=== PATIENT | male | born 1985 | race Caucasian/White ===

== ENCOUNTER → 2020-04-24 16:49 | Outpatient (CLI) | payer OTHER, SELFPAY ==
--- NOTE | 2020-04-24 | DI.MRI.S_ITS ---
PROCEDURE: MR LUMBAR SPINE WO CON INDICATIONS: Low back pain TECHNIQUE: Noncontrast sagittal T1 spin echo and T2 fast echo, sagittal STIR, axial T1 and T2 fast spin echo through the lumbar spine. In cases with scoliosis, additional coronal T2 fast spin echo may be performed. COMPARISON: [facility] Vernon Zavalla, CR, XR LUMBAR SPINE 2 OR 3 VIEWS, 04/16/2020, 9:08. FINDINGS: Image quality: Excellent. Alignment and Curvature: There is normal bony alignment. Bone Marrow: Minimal reactive endplate changes noted adjacent to the L5-S1 disc. No acute vertebral body compression fractures. Spinal Cord: Conus medullaris terminates at the L1-2 disc level. Visualized cord demonstrates normal signal and size. Paraspinous Soft Tissues: No paravertebral masses. L1-L2: Normal appearance. L2-L3: Normal appearance. L3-L4: Normal appearance. L4-L5: Normal appearance. L5-S1: Loss of disc signal. Mild, diffuse disc bulge. Small central disc protrusion. No central stenosis. Mild bilateral neural foraminal narrowing. No neural compression. Fissure noted in the posterior annulus. IMPRESSION: 1. Mild L5-S1 degenerative disc disease. 2. No central stenosis. 3. Mild bilateral L5-S1 neural foraminal narrowing. 4. No neural compression. 5. L5-S1 disc annulus fissure. Dictated by: Patt Perkins MD, PhD on 04/25/2020 at 13:16 Approved by: Patt Perkins MD, PhD on 04/25/2020 at 13:24
== END ==
PROVIDERS: Family Provider Family Medicine; PCP Family Medicine; Referring Provider Orthopaedic Surgery; Visit Provider Orthopaedic Surgery
DX: M54.5 Low back pain (principal); M51.37 Other intervertebral disc degeneration, lumbosacral region; M48.07 Spinal stenosis, lumbosacral region
CPT/HCPCS: 72148

== ENCOUNTER 2020-06-24 08:15 | Outpatient (RCR) | payer OTHER, SELFPAY ==
--- NOTE | 2020-03-24 12:06 | PT.OIE ---
Current Diagnoses Low back pain (03/24/20) Visit Care Team Role Provider Type Rodolfo Khan DO Attending Provider Non-Staff Family Provider Primary Care Provider Referring Provider Specialty: Family Practice Address: [address] [place] [address], [facility] Email: Physical Therapy Initial Evaluation PT-OP-A Visit Information Start: 03/24/20 09:58 Freq: Status: Active Protocol: Document 03/24/20 09:59 HH (Rec: 03/24/20 10:34 [email or web address]) Out-Patient Physical Therapy Visit Information Visit Information Visit Type Initial Evaluation Visit Start Time 08:16 Visit Stop Time 09:00 Total Visit Minutes 44 Visit Number 05/21 Number of GUIDE TRAVEL Visits 0 Evaluation Information Evaluation Date 03/24/20 PT-OP-B Current Condition Start: 03/24/20 09:58 Freq: Status: Active Protocol: Document 03/24/20 09:59 HH (Rec: 03/24/20 10:34 [email or web address]) Current Condition History of Current Condition Onset Date 5-6 years ago Current Complaints chronic LBP History of Current Condition Pt is a 34yo male here for his chronic LBP started 5-6 years ago. 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 He then has intermittent low grade back pain (1-4/10) and had flare ups x 2 (pain up to 8/10 ). His most recent one was in December while he was picking up a small object but his pain subsided after 4 weeks. Pt had physical therapy before which focused on increasing his hamstrings flexiblity and trunk stability. Pt has been going to the gym for lifting workout ( bench press, squat and deadlift) which seemly has been helping his back as he stated, but he wants to participate PT again for injury prevention and therex for recovery. PT-OP-C Subjective Start: 03/24/20 09:58 Freq: Status: Active Protocol: Document 03/24/20 09:59 HH (Rec: 03/24/20 10:34 [email or web address]) Patient Questionnaires Oswestry Low Back Index Oswestry Score 28 Oswestry Impairment 20 to 39% Impaired (Score 20- 39) OP-PT Pain Assessment Location LBP Pain Location Details L4-L5 Scale Used 1-8 Description Aching,Pulling Frequency Intermittent Radiating Location none but R posterior thigh during flare ups Pain Aggravating Factors Activity,Exercise,Bending, Lifting Pain Alleviating Factors Inactivity PT-OP-F Manual Assessment Start: 03/24/20 09:58 Freq: Status: Active Protocol: Document 03/24/20 09:59 HH (Rec: 03/24/20 10:34 [email or web address]) Manual Assessments Soft Tissue Assessment Soft Tissue Mobility Assessment increased tenderness to pressure at lumbar paraspinals Joint Mobility Assessment Joint Mobility Assessment pain with PA mob at L4-L5 PT-OP-H Neuro Start: 03/24/20 09:58 Freq: Status: Active Protocol: Document 03/24/20 09:59 HH (Rec: 03/24/20 10:34 [email or web address]) Sensation Evaluation Gross Sensation Gross Sensation WNL Deep Tendon Reflex & Clonus Assessment Deep Tendon Reflex Bilateral Achilles Deep Tendon Reflex 2+ Normal Bilateral Patellar Deep Tendon Reflex 1+ Diminished PT-OP-J Posture/Palpation/Skin Start: 03/24/20 09:58 Freq: Status: Active Protocol: Document 03/24/20 09:59 HH (Rec: 03/24/20 10:34 [email or web address]) Posture Evaluation Position Standing Evaluation View Lateral T-Spine Posture Increased Kyphosis L-Spine Posture Increased Lordosis Ankle/Foot Posture (L) Pronated,(R) Pronated,(L) Forefoot Abducted,(R) Forefoot Abducted PT-OP-K Range of Motion Start: 03/24/20 09:58 Freq: Status: Active Protocol: Document 03/24/20 09:59 (Rec: 03/24/20 10:34 [email or web address]) Lumbar Spine Range of Motion Lumbar Spine Active Degrees Comments standing toe touch test= 8 inches from floor, significant PPT with flexion mostly from lumbar spine lateral flexion= 23 inches from floor bilaterally standing extenison= shoulders cleared heels bilaterally Hip Goniometric Range of Motion Hip Right Active Hip ROM WFL No Testing Position Supine Straight Leg Raise 60 Internal Rotation 35 External Rotation 30 Left Active Hip ROM WFL No Straight Leg Raise 65 Internal Rotation 30 External Rotation 35 Hip ROM Limitations Hip ROM Limitations Soft Tissue Tightness Knee Goniometric Range of Motion Knee Right Flexion Active (degrees) 128 Flexion Passive (degrees) 130 Comments significant anterior pelvic tilt noted with passive knee flexion. Pain noted at lumbar spine as well Left Knee ROM WFL No Patient Position Prone Flexion Active (degrees) 116 Flexion Passive (degrees) 120 Comments anterior pelvic tilt noted with passive knee flexion. less Pain noted at lumbar spine as well PT-OP-L Special Tests Start: 03/24/20 09:58 Freq: Status: Active Protocol: Document 03/24/20 09:59 (Rec: 03/24/20 10:34 [email or web address]) Special Tests Lumbar Spine Special Tests Harlan Test Results +ve B Comments pain at low back, knee ~10 degrees off table Prone Instability Test Test Results +ve B Comments pain at L4-L5 with PA mob and subside with unilateral hip extension Straight Leg Raise Test Results -ve B Comments SLR up to 60 degrees, significant Hs tightness PT-OP-M Strength Start: 03/24/20 09:58 Freq: Status: Active Protocol: Document 03/24/20 09:59 (Rec: 03/24/20 10:34 [email or web address]) Hip Strength Hip Manual Muscle Testing Right Flexion (L2) 4 Good Extension (S1) 4 Good Abduction 4+ Good+ Adduction 4+ Good+ Left Flexion (L2) 4+ Good+ Extension (S1) 4+ Good+ Abduction 4+ Good+ Adduction 4+ Good+ PT-OP-Q Treatments Start: 03/24/20 09:58 Freq: Status: Active Protocol: Document 03/24/20 09:59 (Rec: 03/24/20 10:34 [email or web address]) Therapeutic Exercises Standing Exercises quad stretch Standing Exercise Name ankle on table Side bilateral Comments for HEP gallo curl Standing Exercise Name cues on extended knees Equipment Used with 10 lbs DB Comments for HEP pigeon stretch Standing Exercise Name with trunk rotation to ipsilateral LE Comments for HEP PT-OP-T Assessment and Plan Start: 03/24/20 09:58 Freq: Status: Active Protocol: Document 03/24/20 09:59 (Rec: 03/24/20 10:34 [email or web address]) Physical Therapy Assessment Rehab Potential Rehabilitation Potential Excellent Evaluation Complexity Number of Personal Factors/Comorbidities 0 Number of Body Systems Impaired 1-2 Clinical Presentation at Evaluation Stable Impairments Impairments Activity Tolerance,Balance, Functional Activities, Functional Mobility,Pain, Posture,ROM,Soft Tissue Mobility,Strength,Tone Goals pain Impairment significant pain during PA mob at L4-L5 Vermin Exterminator Goal (LTG) pt will improve his lumbar stability and msucular strength so he will have pain no more than >2 during PA mob. LTG Duration 8 weeks toe touch test Impairment flexion= 8 inches. 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 LTG Duration 8 weeks Oswestry Impairment Pt scores 28 on Oswestry LBP questionnaire Short Term Goal (STG) pt will score <20 on Oswestry LBP questionnaire STG Duration 4 weeks Vermin Exterminator Goal (LTG) pt will score <15 on Oswestry LBP questionnaire to improve his quality of life LTG Duration 8 weeks Assessment Summary Assessment Pt is a 34yo male here for his chronic LBP after his injury from lifting a 400 lbs safe 5- 6 years ago. Upon assessment, pt presents poor hip mobility who is very limited at hamstrings, hip ER IR and hip flexors. This creates significant muscular tension towards his lumbar spine who tends to injury himself with bend over / twisting activities. Pt also has poor lumbar spine stability whose pain decreases with unilateral hip extension during prone instability test. However, pt stated that he has a flare up after assessment and this PT provided pigeon stretch, gallo curl and quad stretch. Roque will benefit from skilled therapy to address his limited hip mobility and trunk stability in order for him to fully return to his workout routine and bend over activities without fear avoidance. Physical Therapy Plan Frequency and Duration Frequency of Treatment 1x/Week Duration of Treatment 10 weeks Plan of Care Start Date 03/24/20 Plan of Care End Date 06/07/20 Therapeutic Interventions Therapeutic Interventions Aquatic Therapy,Balance Training,Gait Training,Home Exercise Program,Joint Mobilizations,Manual Therapy, Neuromuscular Re-education, Patient/Caregiver Education, Self-Care/Home Management,Soft Tissue Mobilization,Taping, Therapeutic Activities, Therapeutic Exercises Modalities Biofeedback,Cold Pack/Ice Massage,Electric Stimulation, Hot Packs,Infrared Therapy, Traction- Mechanical, Ultrasound Next Visit Focus/Plan Next Note Type Treatment Note Next Visit Plan check HEP cont HS, hip ER IR, hip flexor mobility ex cat camel trunk stability, bird dog lift
--- NOTE | 2020-04-01 16:17 | PT.OTN ---
Current Diagnoses Low back pain (04/01/20) Physical Therapy Treatment Note PT-OP-A Visit Information Start: 03/24/20 09:58 Freq: Status: Active Protocol: Document 04/01/20 14:30 HH (Rec: 04/01/20 16:17 [email or web address]) Out-Patient Physical Therapy Visit Information Visit Information Visit Type Treatment Note Visit Start Time 14:30 Visit Stop Time 15:15 Total Visit Minutes 45 Visit Number 2/13 Number of CATEGORY CONSULTANT Visits 0 PT-OP-B Current Condition Start: 03/24/20 09:58 Freq: Status: Active Protocol: Document 03/24/20 09:59 HH (Rec: 03/24/20 10:34 [email or web address]) Current Condition History of Current Condition Onset Date 5-6 years ago Current Complaints chronic LBP History of Current Condition Pt is a 34yo male here for his chronic LBP started 5-6 years ago. 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 He then has intermittent low grade back pain (1-4/10) and had flare ups x 2 (pain up to 8/10 ). His most recent one was in December while he was picking up a small object but his pain subsided after 4 weeks. Pt had physical therapy before which focused on increasing his hamstrings flexiblity and trunk stability. Pt has been going to the gym for lifting workout ( bench press, squat and deadlift) which seemly has been helping his back as he stated, but he wants to participate PT again for injury prevention and therex for recovery. PT-OP-C Subjective Start: 03/24/20 09:58 Freq: Status: Active Protocol: Document 04/01/20 14:30 HH (Rec: 04/01/20 16:17 [id number]) OP-PT Subjective Patient Comments Patient Comments I got sore for 2 days from evaluation. Im getting back to normal now. PT-OP-F Manual Assessment Start: 03/24/20 09:58 Freq: Status: Active Protocol: Document 03/24/20 09:59 HH (Rec: 03/24/20 10:34 [email or web address]) Manual Assessments Soft Tissue Assessment Soft Tissue Mobility Assessment increased tenderness to pressure at lumbar paraspinals Joint Mobility Assessment Joint Mobility Assessment pain with PA mob at L4-L5 PT-OP-H Neuro Start: 03/24/20 09:58 Freq: Status: Active Protocol: Document 03/24/20 09:59 HH (Rec: 03/24/20 10:34 [email or web address]) Sensation Evaluation Gross Sensation Gross Sensation WNL Deep Tendon Reflex & Clonus Assessment Deep Tendon Reflex Bilateral Achilles Deep Tendon Reflex 2+ Normal Bilateral Patellar Deep Tendon Reflex 1+ Diminished PT-OP-J Posture/Palpation/Skin Start: 03/24/20 09:58 Freq: Status: Active Protocol: Document 03/24/20 09:59 HH (Rec: 03/24/20 10:34 [email or web address]) Posture Evaluation Position Standing Evaluation View Lateral T-Spine Posture Increased Kyphosis L-Spine Posture Increased Lordosis Ankle/Foot Posture (L) Pronated,(R) Pronated,(L) Forefoot Abducted,(R) Forefoot Abducted PT-OP-K Range of Motion Start: 03/24/20 09:58 Freq: Status: Active Protocol: Document 03/24/20 09:59 HH (Rec: 03/24/20 10:34 [email or web address]) Lumbar Spine Range of Motion Lumbar Spine Active Degrees Comments standing toe touch test= 8 inches from floor, significant PPT with flexion mostly from lumbar spine lateral flexion= 23 inches from floor bilaterally standing extenison= shoulders cleared heels bilaterally Hip Goniometric Range of Motion Hip Right Active Hip ROM WFL No Testing Position Supine Straight Leg Raise 60 Internal Rotation 35 External Rotation 30 Left Active Hip ROM WFL No Straight Leg Raise 65 Internal Rotation 30 External Rotation 35 Hip ROM Limitations Hip ROM Limitations Soft Tissue Tightness Knee Goniometric Range of Motion Knee Right Flexion Active (degrees) 128 Flexion Passive (degrees) 130 Comments significant anterior pelvic tilt noted with passive knee flexion. Pain noted at lumbar spine as well Left Knee ROM WFL No Patient Position Prone Flexion Active (degrees) 116 Flexion Passive (degrees) 120 Comments anterior pelvic tilt noted with passive knee flexion. less Pain noted at lumbar spine as well PT-OP-L Special Tests Start: 03/24/20 09:58 Freq: Status: Active Protocol: Document 03/24/20 09:59 HH (Rec: 03/24/20 10:34 [email or web address]) Special Tests Lumbar Spine Special Tests Harlan Test Results +ve B Comments pain at low back, knee ~10 degrees off table Prone Instability Test Test Results +ve B Comments pain at L4-L5 with PA mob and subside with unilateral hip extension Straight Leg Raise Test Results -ve B Comments SLR up to 60 degrees, significant Hs tightness PT-OP-M Strength Start: 03/24/20 09:58 Freq: Status: Active Protocol: Document 03/24/20 09:59 HH (Rec: 03/24/20 10:34 HH [email or web address]) Hip Strength Hip Manual Muscle Testing Right Flexion (L2) 4 Good Extension (S1) 4 Good Abduction 4+ Good+ Adduction 4+ Good+ Left Flexion (L2) 4+ Good+ Extension (S1) 4+ Good+ Abduction 4+ Good+ Adduction 4+ Good+ PT-OP-Q Treatments Start: 03/24/20 09:58 Freq: Status: Active Protocol: Document 04/01/20 14:30 HH (Rec: 04/01/20 16:17 HH [id number]) Therapeutic Exercises Supine Exercises harlan stretch Side bilateral Reps/Minutes 10 sec hold x5 Prone Exercises quad stretch Side bilateral Reps/Minutes 10 sec hold x 5 Comments R tighter than L, back discomfort at end range Sitting Exercises hamstrings stretch Sitting Exercise Name Single leg hamstrings stretch Side bilateral Reps/Minutes 8 x2 Standing Exercises quad stretch Standing Exercise Name ankle on table, cues for neutral spine Side bilateral Reps/Minutes 10 sec hold x4 Comments for HEP gallo curl Standing Exercise Name cues on extended knees Equipment Used with 10 lbs DB Comments for HEP pigeon stretch Standing Exercise Name with trunk rotation to ipsilateral LE Reps/Minutes 10 sec hold x5 Comments for HEP Manual Therapy Treatment Soft Tissue Mobilization glutes Body Location with piriformis Mobilization Type Sustained Pressure,Trigger Point Release Intensity/Depth Moderate Body Position Prone hamstrings Mobilization Type Sustained Pressure,Trigger Point Release Intensity/Depth Moderate Body Position Prone paraspinals Body Location lumbar Mobilization Type Sustained Pressure,Trigger Point Release Intensity/Depth Moderate Body Position Prone PT-OP-T Assessment and Plan Start: 03/24/20 09:58 Freq: Status: Active Protocol: Document 04/01/20 14:30 HH (Rec: 04/01/20 16:17 HH [id number]) Physical Therapy Assessment Goals pain Impairment significant pain during PA mob at L4-L5 Service Desk Analyst Goal (LTG) pt will improve his lumbar stability and msucular strength so he will have pain no more than >2 during PA mob. LTG Duration 8 weeks toe touch test Impairment flexion= 8 inches. 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 LTG Duration 8 weeks Oswestry Impairment Pt scores 28 on Oswestry LBP questionnaire Short Term Goal (STG) pt will score <20 on Oswestry LBP questionnaire STG Duration 4 weeks Service Desk Analyst Goal (LTG) pt will score <15 on Oswestry LBP questionnaire to improve his quality of life LTG Duration 8 weeks Assessment Summary Assessment Pt recovered from initial evaluation. spent time educated him regarding importance of hip mobility. Added pigeon stretch, lumbar flexion stretch, hamstrings stretch and quad stretch. Physical Therapy Plan Frequency and Duration Frequency of Treatment 1x/Week Duration of Treatment 10 weeks Plan of Care Start Date 03/24/20 Plan of Care End Date 06/07/20 Next Visit Focus/Plan Next Note Type Treatment Note Next Visit Plan check HEP cont HS, hip ER IR, hip flexor mobility ex cat camel trunk stability, bird dog lift
--- NOTE | 2020-04-14 09:23 | PT.OTN ---
Current Diagnoses Low back pain (04/14/20) Physical Therapy Treatment Note PT-OP-A Visit Information Start: 03/24/20 09:58 Freq: Status: Active Protocol: Document 04/14/20 08:15 (Rec: 04/14/20 09:23 [id number]) Out-Patient Physical Therapy Visit Information Visit Information Visit Type Treatment Note Visit Start Time 08:16 Visit Stop Time 09:00 Total Visit Minutes 44 Visit Number 3/13 Number of DELIVERY CREW MEMBER Visits 0 PT-OP-B Current Condition Start: 03/24/20 09:58 Freq: Status: Active Protocol: Document 03/24/20 09:59 HH (Rec: 03/24/20 10:34 [email or web address]) Current Condition History of Current Condition Onset Date 5-6 years ago Current Complaints chronic LBP History of Current Condition Pt is a 34yo male here for his chronic LBP started 5-6 years ago. 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 He then has intermittent low grade back pain (1-4/10) and had flare ups x 2 (pain up to 8/10 ). His most recent one was in December while he was picking up a small object but his pain subsided after 4 weeks. Pt had physical therapy before which focused on increasing his hamstrings flexiblity and trunk stability. Pt has been going to the gym for lifting workout ( bench press, squat and deadlift) which seemly has been helping his back as he stated, but he wants to participate PT again for injury prevention and therex for recovery. PT-OP-C Subjective Start: 03/24/20 09:58 Freq: Status: Active Protocol: Document 04/14/20 08:15 HH (Rec: 04/14/20 09:23 [id number]) OP-PT Subjective Patient Comments Patient Comments I wasnt consistent with my exercises but [place] been doing them every other day. My back is getting better and It's down to 1-2/10. Patient Reported Progress Improving PT-OP-F Manual Assessment Start: 03/24/20 09:58 Freq: Status: Active Protocol: Document 03/24/20 09:59 HH (Rec: 03/24/20 10:34 [email or web address]) Manual Assessments Soft Tissue Assessment Soft Tissue Mobility Assessment increased tenderness to pressure at lumbar paraspinals Joint Mobility Assessment Joint Mobility Assessment pain with PA mob at L4-L5 PT-OP-H Neuro Start: 03/24/20 09:58 Freq: Status: Active Protocol: Document 03/24/20 09:59 HH (Rec: 03/24/20 10:34 [email or web address]) Sensation Evaluation Gross Sensation Gross Sensation WNL Deep Tendon Reflex & Clonus Assessment Deep Tendon Reflex Bilateral Achilles Deep Tendon Reflex 2+ Normal Bilateral Patellar Deep Tendon Reflex 1+ Diminished PT-OP-J Posture/Palpation/Skin Start: 03/24/20 09:58 Freq: Status: Active Protocol: Document 03/24/20 09:59 HH (Rec: 03/24/20 10:34 [email or web address]) Posture Evaluation Position Standing Evaluation View Lateral T-Spine Posture Increased Kyphosis L-Spine Posture Increased Lordosis Ankle/Foot Posture (L) Pronated,(R) Pronated,(L) Forefoot Abducted,(R) Forefoot Abducted PT-OP-K Range of Motion Start: 03/24/20 09:58 Freq: Status: Active Protocol: Document 03/24/20 09:59 (Rec: 03/24/20 10:34 [email or web address]) Lumbar Spine Range of Motion Lumbar Spine Active Degrees Comments standing toe touch test= 8 inches from floor, significant PPT with flexion mostly from lumbar spine lateral flexion= 23 inches from floor bilaterally standing extenison= shoulders cleared heels bilaterally Hip Goniometric Range of Motion Hip Right Active Hip ROM WFL No Testing Position Supine Straight Leg Raise 60 Internal Rotation 35 External Rotation 30 Left Active Hip ROM WFL No Straight Leg Raise 65 Internal Rotation 30 External Rotation 35 Hip ROM Limitations Hip ROM Limitations Soft Tissue Tightness Knee Goniometric Range of Motion Knee Right Flexion Active (degrees) 128 Flexion Passive (degrees) 130 Comments significant anterior pelvic tilt noted with passive knee flexion. Pain noted at lumbar spine as well Left Knee ROM WFL No Patient Position Prone Flexion Active (degrees) 116 Flexion Passive (degrees) 120 Comments anterior pelvic tilt noted with passive knee flexion. less Pain noted at lumbar spine as well PT-OP-L Special Tests Start: 03/24/20 09:58 Freq: Status: Active Protocol: Document 03/24/20 09:59 (Rec: 03/24/20 10:34 [email or web address]) Special Tests Lumbar Spine Special Tests Harlan Test Results +ve B Comments pain at low back, knee ~10 degrees off table Prone Instability Test Test Results +ve B Comments pain at L4-L5 with PA mob and subside with unilateral hip extension Straight Leg Raise Test Results -ve B Comments SLR up to 60 degrees, significant Hs tightness PT-OP-M Strength Start: 03/24/20 09:58 Freq: Status: Active Protocol: Document 03/24/20 09:59 (Rec: 03/24/20 10:34 [email or web address]) Hip Strength Hip Manual Muscle Testing Right Flexion (L2) 4 Good Extension (S1) 4 Good Abduction 4+ Good+ Adduction 4+ Good+ Left Flexion (L2) 4+ Good+ Extension (S1) 4+ Good+ Abduction 4+ Good+ Adduction 4+ Good+ PT-OP-Q Treatments Start: 03/24/20 09:58 Freq: Status: Active Protocol: Document 04/14/20 08:15 (Rec: 04/14/20 09:23 [id number]) Therapeutic Exercises Supine Exercises harlan stretch Side bilateral Reps/Minutes 10 sec hold x5 Comments improved flexibility today. thighs reached table Prone Exercises cat camel Reps/Minutes 10 x2 Comments with cervical extension and flexion quad stretch Side bilateral Reps/Minutes 10 sec hold x 5 Comments no back discomfort, heel1-2 inches off buttocks Sitting Exercises hamstrings stretch Sitting Exercise Name Single leg hamstrings stretch Side bilateral Reps/Minutes 8 x2 Standing Exercises deadlift Side bilateral Equipment Used 10lbs Reps/Minutes 10 x2 Comments cues on hip hinge, pt feels soreness at back gallo curl Standing Exercise Name cues on extended knees Equipment Used with 10 lbs DB pigeon stretch Standing Exercise Name with trunk rotation to ipsilateral LE Reps/Minutes 10 sec hold x5 Comments for HEP Manual Therapy Treatment Soft Tissue Mobilization glutes Body Location with piriformis Mobilization Type Sustained Pressure,Trigger Point Release Intensity/Depth Moderate Body Position Prone hamstrings Mobilization Type Sustained Pressure,Trigger Point Release Intensity/Depth Moderate Body Position Prone paraspinals Body Location lumbar Mobilization Type Sustained Pressure,Trigger Point Release Intensity/Depth Moderate Body Position Prone PT-OP-T Assessment and Plan Start: 03/24/20 09:58 Freq: Status: Active Protocol: Document 04/14/20 08:15 SANTI (Rec: 04/14/20 09:23 [id number]) Physical Therapy Assessment Goals pain Impairment significant pain during PA mob at L4-L5 Snf Goal (LTG) pt will improve his lumbar stability and msucular strength so he will have pain no more than >2 during PA mob. LTG Duration 8 weeks toe touch test Impairment flexion= 8 inches. 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 LTG Duration 8 weeks Oswestry Impairment Pt scores 28 on Oswestry LBP questionnaire Short Term Goal (STG) pt will score <20 on Oswestry LBP questionnaire STG Duration 4 weeks Snf Goal (LTG) pt will score <15 on Oswestry LBP questionnaire to improve his quality of life LTG Duration 8 weeks Assessment Summary Assessment Pt shows good progress with improved hip mobility today, especially quad and hip flexors tightness. Added deadlift today. Physical Therapy Plan Frequency and Duration Frequency of Treatment 1x/Week Duration of Treatment 10 weeks Plan of Care Start Date 03/24/20 Plan of Care End Date 06/07/20 Next Visit Focus/Plan Next Note Type Treatment Note Next Visit Plan check HEP cont HS, hip ER IR, hip flexor mobility ex cat camel trunk stability, bird dog lift
--- NOTE | 2020-04-21 12:21 | PT.OTN ---
Current Diagnoses Low back pain (04/21/20) Physical Therapy Treatment Note PT-OP-A Visit Information Start: 03/24/20 09:58 Freq: Status: Active Protocol: Document 04/21/20 08:16 (Rec: 04/21/20 09:04 [id number]) Out-Patient Physical Therapy Visit Information Visit Information Visit Type Treatment Note Visit Start Time 08:17 Visit Stop Time 09:00 Total Visit Minutes 43 Visit Number 4/13 Number of DEFENSIVE LINE COACH Visits 0 PT-OP-B Current Condition Start: 03/24/20 09:58 Freq: Status: Active Protocol: Document 03/24/20 09:59 HH (Rec: 03/24/20 10:34 [email or web address]) Current Condition History of Current Condition Onset Date 5-6 years ago Current Complaints chronic LBP History of Current Condition Pt is a 34yo male here for his chronic LBP started 5-6 years ago. 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 He then has intermittent low grade back pain (1-4/10) and had flare ups x 2 (pain up to 8/10 ). His most recent one was in December while he was picking up a small object but his pain subsided after 4 weeks. Pt had physical therapy before which focused on increasing his hamstrings flexiblity and trunk stability. Pt has been going to the gym for lifting workout ( bench press, squat and deadlift) which seemly has been helping his back as he stated, but he wants to participate PT again for injury prevention and therex for recovery. PT-OP-C Subjective Start: 03/24/20 09:58 Freq: Status: Active Protocol: Document 04/21/20 08:16 (Rec: 04/21/20 09:04 [id number]) OP-PT Subjective Patient Comments Patient Comments Emelyn been doing all my stretches everyday and my back usually feels the tension while doing it but its better after. I do feel sore the next day Patient Reported Progress Improving PT-OP-F Manual Assessment Start: 03/24/20 09:58 Freq: Status: Active Protocol: Document 03/24/20 09:59 HH (Rec: 03/24/20 10:34 [email or web address]) Manual Assessments Soft Tissue Assessment Soft Tissue Mobility Assessment increased tenderness to pressure at lumbar paraspinals Joint Mobility Assessment Joint Mobility Assessment pain with PA mob at L4-L5 PT-OP-H Neuro Start: 03/24/20 09:58 Freq: Status: Active Protocol: Document 03/24/20 09:59 HH (Rec: 03/24/20 10:34 [email or web address]) Sensation Evaluation Gross Sensation Gross Sensation WNL Deep Tendon Reflex & Clonus Assessment Deep Tendon Reflex Bilateral Achilles Deep Tendon Reflex 2+ Normal Bilateral Patellar Deep Tendon Reflex 1+ Diminished PT-OP-J Posture/Palpation/Skin Start: 03/24/20 09:58 Freq: Status: Active Protocol: Document 03/24/20 09:59 HH (Rec: 03/24/20 10:34 [email or web address]) Posture Evaluation Position Standing Evaluation View Lateral T-Spine Posture Increased Kyphosis L-Spine Posture Increased Lordosis Ankle/Foot Posture (L) Pronated,(R) Pronated,(L) Forefoot Abducted,(R) Forefoot Abducted PT-OP-K Range of Motion Start: 03/24/20 09:58 Freq: Status: Active Protocol: Document 03/24/20 09:59 (Rec: 03/24/20 10:34 [email or web address]) Lumbar Spine Range of Motion Lumbar Spine Active Degrees Comments standing toe touch test= 8 inches from floor, significant PPT with flexion mostly from lumbar spine lateral flexion= 23 inches from floor bilaterally standing extenison= shoulders cleared heels bilaterally Hip Goniometric Range of Motion Hip Right Active Hip ROM WFL No Testing Position Supine Straight Leg Raise 60 Internal Rotation 35 External Rotation 30 Left Active Hip ROM WFL No Straight Leg Raise 65 Internal Rotation 30 External Rotation 35 Hip ROM Limitations Hip ROM Limitations Soft Tissue Tightness Knee Goniometric Range of Motion Knee Right Flexion Active (degrees) 128 Flexion Passive (degrees) 130 Comments significant anterior pelvic tilt noted with passive knee flexion. Pain noted at lumbar spine as well Left Knee ROM WFL No Patient Position Prone Flexion Active (degrees) 116 Flexion Passive (degrees) 120 Comments anterior pelvic tilt noted with passive knee flexion. less Pain noted at lumbar spine as well PT-OP-L Special Tests Start: 03/24/20 09:58 Freq: Status: Active Protocol: Document 03/24/20 09:59 (Rec: 03/24/20 10:34 [email or web address]) Special Tests Lumbar Spine Special Tests Harlan Test Results +ve B Comments pain at low back, knee ~10 degrees off table Prone Instability Test Test Results +ve B Comments pain at L4-L5 with PA mob and subside with unilateral hip extension Straight Leg Raise Test Results -ve B Comments SLR up to 60 degrees, significant Hs tightness PT-OP-M Strength Start: 03/24/20 09:58 Freq: Status: Active Protocol: Document 03/24/20 09:59 (Rec: 03/24/20 10:34 [email or web address]) Hip Strength Hip Manual Muscle Testing Right Flexion (L2) 4 Good Extension (S1) 4 Good Abduction 4+ Good+ Adduction 4+ Good+ Left Flexion (L2) 4+ Good+ Extension (S1) 4+ Good+ Abduction 4+ Good+ Adduction 4+ Good+ PT-OP-Q Treatments Start: 03/24/20 09:58 Freq: Status: Active Protocol: Document 04/21/20 08:16 HH (Rec: 04/21/20 09:04 [id number]) Therapeutic Exercises Supine Exercises bridging Side bilateral Reps/Minutes 10 x2 harlan stretch Side bilateral Reps/Minutes 10 sec hold x5 Comments improved flexibility today. thighs reached table Prone Exercises bird dog Side bilateral Reps/Minutes 8 x2 cat camel Reps/Minutes 10 x2 Comments with cervical extension and flexion quad stretch Side bilateral Reps/Minutes 10 sec hold x 5 Comments no back discomfort, heel1-2 inches off buttocks Sitting Exercises hamstrings stretch Sitting Exercise Name Single leg hamstrings stretch Side bilateral Reps/Minutes 8 x2 Standing Exercises RDL Standing Exercise Name staggered stance Side bilateral Reps/Minutes 8x 2 Comments slight discomfort with L foot forward, deadlift Side bilateral Equipment Used 10lbs Reps/Minutes 10 x2 Comments cues on hip hinge, pt feels soreness at back gallo curl Standing Exercise Name cues on extended knees Equipment Used with 10 lbs DB Manual Therapy Treatment Soft Tissue Mobilization glutes Body Location with piriformis Mobilization Type Sustained Pressure,Trigger Point Release Intensity/Depth Moderate Body Position Prone hamstrings Mobilization Type Sustained Pressure,Trigger Point Release Intensity/Depth Moderate Body Position Prone paraspinals Body Location lumbar Mobilization Type Sustained Pressure,Trigger Point Release Intensity/Depth Moderate Body Position Prone PT-OP-T Assessment and Plan Start: 03/24/20 09:58 Freq: Status: Active Protocol: Document 04/21/20 08:16 (Rec: 04/21/20 09:04 [id number]) Physical Therapy Assessment Goals pain Impairment significant pain during PA mob at L4-L5 Pen[facility]iary Goal (LTG) pt will improve his lumbar stability and msucular strength so he will have pain no more than >2 during PA mob. LTG Duration 8 weeks toe touch test Impairment flexion= 8 inches. 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 LTG Duration 8 weeks Oswestry Impairment Pt scores 28 on Oswestry LBP questionnaire Short Term Goal (STG) pt will score <20 on Oswestry LBP questionnaire STG Duration 4 weeks Route Carrier Goal (LTG) pt will score <15 on Oswestry LBP questionnaire to improve his quality of life LTG Duration 8 weeks Assessment Summary Assessment Improved hip mobility and segmental lumbar mobility noted. Added more trunk stability therex today. Pt kel session okay with some soreness at low back today. Physical Therapy Plan Frequency and Duration Frequency of Treatment 1x/Week Duration of Treatment 10 weeks Plan of Care Start Date 03/24/20 Plan of Care End Date 06/07/20 Next Visit Focus/Plan Next Note Type Treatment Note Next Visit Plan check HEP cont HS, hip ER IR, hip flexor mobility ex cat camel trunk stability, bird dog lift
--- NOTE | 2020-05-19 16:08 | PT.OTN ---
Current Diagnoses Low back pain (05/19/20) Physical Therapy Treatment Note PT-OP-A Visit Information Start: 03/24/20 09:58 Freq: Status: Active Protocol: Document 05/19/20 15:16 (Rec: 05/19/20 16:08 [id number]) Out-Patient Physical Therapy Visit Information Visit Information Visit Type Treatment Note Visit Note 04/24 MRI report Loss of disc signal. Mild, diffuse disc bulge. Small central disc protrusion. No central stenosis. Mild bilateral neural foraminal narrowing. No neural compression. Fissure noted in the posterior annulus. Visit Start Time 08:17 Visit Stop Time 09:00 Total Visit Minutes 43 Visit Number 4/ Number of RESIDENT CARE TECHNICIAN Visits 0 PT-OP-B Current Condition Start: 03/24/20 09:58 Freq: Status: Active Protocol: Document 03/24/20 09:59 (Rec: 03/24/20 10:34 [email or web address]) Current Condition History of Current Condition Onset Date 5-6 years ago Current Complaints chronic LBP History of Current Condition Pt is a 34yo male here for his chronic LBP started 5-6 years ago. 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 He then has intermittent low grade back pain (1-4/10) and had flare ups x 2 (pain up to 8/10 ). His most recent one was in December while he was picking up a small object but his pain subsided after 4 weeks. Pt had physical therapy before which focused on increasing his hamstrings flexiblity and trunk stability. Pt has been going to the gym for lifting workout ( bench press, squat and deadlift) which seemly has been helping his back as he stated, but he wants to participate PT again for injury prevention and therex for recovery. PT-OP-C Subjective Start: 03/24/20 09:58 Freq: Status: Active Protocol: Document 05/19/20 15:16 (Rec: 05/19/20 16:08 [id number]) OP-PT Subjective Patient Comments Patient Comments everything is doing pretty good especially my hip ROM. My back is doing good but i do feel stiffness especially in the morning. Im going to have a steroid shot on so my recovery is faster. Patient Reported Progress Improving PT-OP-F Manual Assessment Start: 03/24/20 09:58 Freq: Status: Active Protocol: Document 03/24/20 09:59 HH (Rec: 03/24/20 10:34 [email or web address]) Manual Assessments Soft Tissue Assessment Soft Tissue Mobility Assessment increased tenderness to pressure at lumbar paraspinals Joint Mobility Assessment Joint Mobility Assessment pain with PA mob at L4-L5 PT-OP-H Neuro Start: 03/24/20 09:58 Freq: Status: Active Protocol: Document 03/24/20 09:59 HH (Rec: 03/24/20 10:34 [email or web address]) Sensation Evaluation Gross Sensation Gross Sensation WNL Deep Tendon Reflex & Clonus Assessment Deep Tendon Reflex Bilateral Achilles Deep Tendon Reflex 2+ Normal Bilateral Patellar Deep Tendon Reflex 1+ Diminished PT-OP-J Posture/Palpation/Skin Start: 03/24/20 09:58 Freq: Status: Active Protocol: Document 03/24/20 09:59 HH (Rec: 03/24/20 10:34 [email or web address]) Posture Evaluation Position Standing Evaluation View Lateral T-Spine Posture Increased Kyphosis L-Spine Posture Increased Lordosis Ankle/Foot Posture (L) Pronated,(R) Pronated,(L) Forefoot Abducted,(R) Forefoot Abducted PT-OP-K Range of Motion Start: 03/24/20 09:58 Freq: Status: Active Protocol: Document 03/24/20 09:59 HH (Rec: 03/24/20 10:34 [email or web address]) Lumbar Spine Range of Motion Lumbar Spine Active Degrees Comments standing toe touch test= 8 inches from floor, significant PPT with flexion mostly from lumbar spine lateral flexion= 23 inches from floor bilaterally standing extenison= shoulders cleared heels bilaterally Hip Goniometric Range of Motion Hip Right Active Hip ROM WFL No Testing Position Supine Straight Leg Raise 60 Internal Rotation 35 External Rotation 30 Left Active Hip ROM WFL No Straight Leg Raise 65 Internal Rotation 30 External Rotation 35 Hip ROM Limitations Hip ROM Limitations Soft Tissue Tightness Knee Goniometric Range of Motion Knee Right Flexion Active (degrees) 128 Flexion Passive (degrees) 130 Comments significant anterior pelvic tilt noted with passive knee flexion. Pain noted at lumbar spine as well Left Knee ROM WFL No Patient Position Prone Flexion Active (degrees) 116 Flexion Passive (degrees) 120 Comments anterior pelvic tilt noted with passive knee flexion. less Pain noted at lumbar spine as well PT-OP-L Special Tests Start: 03/24/20 09:58 Freq: Status: Active Protocol: Document 03/24/20 09:59 (Rec: 03/24/20 10:34 [email or web address]) Special Tests Lumbar Spine Special Tests Harlan Test Results +ve B Comments pain at low back, knee ~10 degrees off table Prone Instability Test Test Results +ve B Comments pain at L4-L5 with PA mob and subside with unilateral hip extension Straight Leg Raise Test Results -ve B Comments SLR up to 60 degrees, significant Hs tightness PT-OP-M Strength Start: 03/24/20 09:58 Freq: Status: Active Protocol: Document 03/24/20 09:59 (Rec: 03/24/20 10:34 [email or web address]) Hip Strength Hip Manual Muscle Testing Right Flexion (L2) 4 Good Extension (S1) 4 Good Abduction 4+ Good+ Adduction 4+ Good+ Left Flexion (L2) 4+ Good+ Extension (S1) 4+ Good+ Abduction 4+ Good+ Adduction 4+ Good+ PT-OP-Q Treatments Start: 03/24/20 09:58 Freq: Status: Active Protocol: Document 05/19/20 15:16 HH (Rec: 05/19/20 16:08 [id number]) Therapeutic Exercises Supine Exercises nerve glide Supine Exercise Name supine sciatic nerve glide with knee extension and DF Side bilateral Reps/Minutes 10 x2 bridging Side bilateral Reps/Minutes 10 x2 Prone Exercises superman Prone Exercise Name level 1 with hip extension only Side bilateral Reps/Minutes 8 x2 quad stretch Side bilateral Reps/Minutes 10 sec hold x 5 Comments no back discomfort, heel1-2 inches off buttocks Standing Exercises RDL Standing Exercise Name unilateral Side bilateral Equipment Used with 20 lbs KB Reps/Minutes 8x 2 deadlift Side bilateral Equipment Used 20lbs KB Reps/Minutes 10 x2 gallo curl Standing Exercise Name cues on extended knees Equipment Used 20lbs KB Reps/Minutes 8 x2 Manual Therapy Treatment Soft Tissue Mobilization glutes Body Location with piriformis Mobilization Type Sustained Pressure,Trigger Point Release Intensity/Depth Moderate Body Position Prone PT-OP-T Assessment and Plan Start: 03/24/20 09:58 Freq: Status: Active Protocol: Document 05/19/20 15:16 HH (Rec: 05/19/20 16:08 [id number]) Physical Therapy Assessment Goals pain Impairment significant pain during PA mob at L4-L5 Director Money Goal (LTG) pt will improve his lumbar stability and msucular strength so he will have pain no more than >2 during PA mob. LTG Duration 8 weeks toe touch test Impairment flexion= 8 inches. LF = 23 inches Short Term Goal (STG) pt will improve his posterior chain flexibility to be able to reach <6 inches and 20 inches for touch touch and lateral flexion test STG Duration 4 weeks [facility] Goal (LTG) pt will improve his posterior chain flexibility to be able to reach <4 inches and 20 inches for touch touch and lateral flexion test in order for him to picker/puller objects on the floor without much mechanical stress on lumbar spine LTG Duration 8 weeks hip mobility Impairment SLR = 60 , ER= 30s and IR 30s, prone knee flexion = 120s Short Term Goal (STG) pt will improve his overall hip mobility by 5 degrees STG Duration 4 weeks [facility] Goal (LTG) pt will improve his overall hip mobility by >10 degrees to reduce muscular tension on his lumbar spine. LTG Duration 8 weeks Oswestry Impairment Pt scores 28 on Oswestry LBP questionnaire Short Term Goal (STG) pt will score <20 on Oswestry LBP questionnaire STG Duration 4 weeks [facility] Goal (LTG) pt will score <15 on Oswestry LBP questionnaire to improve his quality of life LTG Duration 8 weeks Assessment Summary Assessment Pt shows significant improvements with hip mobility SLR= ~80 degrees, hip ER = 40 -50, IR= ~. Progressed to stability and low back strengthening ex today and he kel well. Physical Therapy Plan Frequency and Duration Frequency of Treatment 1x/Week Duration of Treatment 10 weeks Plan of Care Start Date 03/24/20 Plan of Care End Date 06/07/20 Next Visit Focus/Plan Next Note Type Treatment Note Next Visit Plan check HEP cont HS, hip ER IR, hip flexor mobility ex cat camel trunk stability, bird dog lift
--- NOTE | 2020-06-09 08:48 | PT-IP ANOTE ---
Called pt and he stated he is not feeling well. Will see and reassess pt next visit
--- NOTE | 2020-06-16 14:02 | PT.OPPOC ---
Physical, Occupational & Speech Therapy At [facility] Current Diagnoses Low back pain (06/16/20) Visit Care Team Role Provider Type Rodolfo Khan DO Attending Provider Non-Staff Family Provider Primary Care Provider Referring Provider Specialty: Family Practice Address: [address] [place] [address], [id number] Email: Plan Of Care PT-OP-T Assessment and Plan Start: 03/24/20 09:58 Freq: Status: Active Protocol: Document 06/16/20 12:55 HH (Rec: 06/16/20 14:02 HH [id number]) Physical Therapy Assessment Goals return to lifting Impairment unable to return to his previous lifting weights Short Term Goal (STG) pt will demonstrated good lifting techniques for deadlift and back squat at 185lbs without any discomfort STG Duration 4 weeks Ceramics Teacher Goal (LTG) pt will maintain good lifting techniques for deadlift and back squat at 225lbs without any discomfort LTG Duration 8 weeks pain Impairment significant pain during PA mob at L4-L5 Ceramics Teacher Goal (LTG) 2/8 goal met pt l improves his lumbar stability and msucular strength so he will have pain no more than >2 during PA mob. LTG Duration 8 weeks toe touch test Impairment flexion= 8 inches. 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 LTG Duration 8 weeks Oswestry Impairment Pt scores 28 on Oswestry LBP questionnaire Short Term Goal (STG) 2/8 cont in progress = 26 pt will score <20 on Oswestry LBP questionnaire STG Duration 4 weeks Ceramics Teacher Goal (LTG) pt will score <15 on Oswestry LBP questionnaire to improve his quality of life LTG Duration 8 weeks Progress Towards Goals Progress Towards Goals Progressing Toward Goals Assessment Summary Assessment although pt had a flare up early in May after having a physically demanding day, he has fully recovered now. He shows good hip mobility now with improved trunk stability as well. Pt will cont benefit from skilled therapy to improve his trunk stability and strength so he can fully return to his lifting activities. Added trunk extension on addison chair and chair squat with barbell to his workout routine to encourage trunk stability. Physical Therapy Plan Frequency and Duration Frequency of Treatment 1x/Week Duration of Treatment 8 weeks Plan of Care Start Date 06/16/19 Plan of Care End Date 08/15/20 Therapeutic Interventions Therapeutic Interventions Balance Training,Gait Training ,Home Exercise Program,Joint Mobilizations,Manual Therapy, Neuromuscular Re-education, Patient/Caregiver Education, Self-Care/Home Management,Soft Tissue Mobilization,Taping, Therapeutic Activities, Therapeutic Exercises Modalities Biofeedback,Cold Pack/Ice Massage,Electric Stimulation, Hot Packs,Infrared Therapy, Traction- Mechanical Next Visit Focus/Plan Next Note Type Treatment Note Next Visit Plan hip mobility, ER and IR, SLR cat camel, bird dog, trunk extension RDL, J curl, deadlift bend over row, single arm rowing hayes carry. Plan of Care Dates Plan of Care Start Date 06/16/19 Plan of Care End Date 08/15/20 Electronically Signed by: Hazel Bain PT 06/16/20 [id number] Please Sign and Return: I have reviewed this Plan of Care and certify that the skilled therapy services above are required to meet the patient?s needs. Physician Signature Date Printed Name and Credentials Clinical Instructor Signature Printed Name and Credentials
--- NOTE | 2020-06-16 14:03 | PT.OTN ---
Current Diagnoses Low back pain (06/16/20) Physical Therapy Treatment Note PT-OP-A Visit Information Start: 03/24/20 09:58 Freq: Status: Active Protocol: Document 06/16/20 12:55 HH (Rec: 06/16/20 14:02 [id number]) Out-Patient Physical Therapy Visit Information Visit Information Visit Type Progress Note Visit Start Time 13:02 Visit Stop Time 13:45 Total Visit Minutes 43 Visit Number 09/18 Number of COAGULATION OPERATOR Visits 0 PT-OP-B Current Condition Start: 03/24/20 09:58 Freq: Status: Active Protocol: Document 03/24/20 09:59 HH (Rec: 03/24/20 10:34 HH [email or web address]) Current Condition History of Current Condition Onset Date 5-6 years ago Current Complaints chronic LBP History of Current Condition Pt is a 34yo male here for his chronic LBP started 5-6 years ago. 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 He then has intermittent low grade back pain (1-4/10) and had flare ups x 2 (pain up to 8/10 ). His most recent one was in December while he was picking up a small object but his pain subsided after 4 weeks. Pt had physical therapy before which focused on increasing his hamstrings flexiblity and trunk stability. Pt has been going to the gym for lifting workout ( bench press, squat and deadlift) which seemly has been helping his back as he stated, but he wants to participate PT again for injury prevention and therex for recovery. PT-OP-C Subjective Start: 03/24/20 09:58 Freq: Status: Active Protocol: Document 06/16/20 12:55 HH (Rec: 06/16/20 14:02 [id number]) OP-PT Subjective Patient Comments Patient Comments Im doing pretty good so far. Having the shot in May with therapy does help in general. My stiffness in morning is getting better but i havent slacking for the past few weeks in terms of exercising. I do notice if i consistently going to do stretching and strengthening at the gym, im feeling better. Patient Reported Progress Improving Patient Questionnaires Oswestry Low Back Index Oswestry Score 26 Oswestry Impairment 20 to 39% Impaired (Score 20- 39) PT-OP-F Manual Assessment Start: 03/24/20 09:58 Freq: Status: Active Protocol: Document 03/24/20 09:59 HH (Rec: 03/24/20 10:34 [email or web address]) Manual Assessments Soft Tissue Assessment Soft Tissue Mobility Assessment increased tenderness to pressure at lumbar paraspinals Joint Mobility Assessment Joint Mobility Assessment pain with PA mob at L4-L5 PT-OP-H Neuro Start: 03/24/20 09:58 Freq: Status: Active Protocol: Document 03/24/20 09:59 HH (Rec: 03/24/20 10:34 [email or web address]) Sensation Evaluation Gross Sensation Gross Sensation WNL Deep Tendon Reflex & Clonus Assessment Deep Tendon Reflex Bilateral Achilles Deep Tendon Reflex 2+ Normal Bilateral Patellar Deep Tendon Reflex 1+ Diminished PT-OP-J Posture/Palpation/Skin Start: 03/24/20 09:58 Freq: Status: Active Protocol: Document 03/24/20 09:59 HH (Rec: 03/24/20 10:34 [email or web address]) Posture Evaluation Position Standing Evaluation View Lateral T-Spine Posture Increased Kyphosis L-Spine Posture Increased Lordosis Ankle/Foot Posture (L) Pronated,(R) Pronated,(L) Forefoot Abducted,(R) Forefoot Abducted PT-OP-K Range of Motion Start: 03/24/20 09:58 Freq: Status: Active Protocol: Document 06/16/20 12:55 HH (Rec: 06/16/20 14:02 [id number]) Hip Goniometric Range of Motion Hip Right Active Straight Leg Raise 75 Internal Rotation 25 External Rotation 45 Left Active Straight Leg Raise 80 Internal Rotation 50 External Rotation 30 PT-OP-L Special Tests Start: 03/24/20 09:58 Freq: Status: Active Protocol: Document 06/16/20 12:55 HH (Rec: 06/16/20 14:02 [id number]) Special Tests Lumbar Spine Special Tests Harlan Test Results -ve B Prone Instability Test Test Results -VE B Straight Leg Raise Comments up to 75-80 degrees PT-OP-M Strength Start: 03/24/20 09:58 Freq: Status: Active Protocol: Document 03/24/20 09:59 HH (Rec: 03/24/20 10:34 [email or web address]) Hip Strength Hip Manual Muscle Testing Right Flexion (L2) 4 Good Extension (S1) 4 Good Abduction 4+ Good+ Adduction 4+ Good+ Left Flexion (L2) 4+ Good+ Extension (S1) 4+ Good+ Abduction 4+ Good+ Adduction 4+ Good+ PT-OP-Q Treatments Start: 03/24/20 09:58 Freq: Status: Active Protocol: Document 06/16/20 12:55 (Rec: 06/16/20 14:02 [id number]) Therapeutic Exercises Prone Exercises trunk extension Prone Exercise Name pt in prone, hand on to table edge, BLE extension Side bilateral Reps/Minutes 8 x2 bird dog Prone Exercise Name with unilateral hip extenison Side bilateral Reps/Minutes 8 x2 cat camel Reps/Minutes 10 x2 Comments improved mobility noted Sidelying Exercises open book Sidelying Exercise Name with LE cross over Side bilateral Standing Exercises single arm bend over row Side bilateral Equipment Used 20lb KB Reps/Minutes 10 x2 bend over row Side bilateral Equipment Used 20 lbs KB Reps/Minutes 10 x2 RDL Standing Exercise Name bilateral Side bilateral Equipment Used with 20 lbs KB Reps/Minutes 8x 2 deadlift Side bilateral Equipment Used 20lbs KB Reps/Minutes 10 x2 gallo curl Standing Exercise Name cues on extended knees Equipment Used 20lbs KB Reps/Minutes 8 x2 PT-OP-T Assessment and Plan Start: 03/24/20 09:58 Freq: Status: Active Protocol: Document 06/16/20 12:55 (Rec: 06/16/20 14:02 [id number]) Physical Therapy Assessment Goals return to lifting Impairment unable to return to his previous lifting weights Short Term Goal (STG) pt will demonstrated good lifting techniques for deadlift and back squat at 185lbs without any discomfort STG Duration 4 weeks [facility] Goal (LTG) pt will maintain good lifting techniques for deadlift and back squat at 225lbs without any discomfort LTG Duration 8 weeks pain Impairment significant pain during PA mob at L4-L5 [facility] Goal (LTG) 2/8 goal met pt l improves his lumbar stability and msucular strength so he will have pain no more than >2 during PA mob. LTG Duration 8 weeks toe touch test Impairment flexion= 8 inches. LF = 23 inches Short Term Goal (STG) 2/8 goal met toe touch= 2 inches from floor lateral flexion to R=21 lateral flexion to L = 21 pt will improve his posterior chain flexibility to be able to reach <6 inches and 20 inches for touch touch and lateral flexion test STG Duration 4 weeks Machine Helper Goal (LTG) 2/8 goal met pt will improve his posterior chain flexibility to be able to reach <4 inches and 20 inches for touch touch and lateral flexion test in order for him to fruit picker objects on the floor without much mechanical stress on lumbar spine LTG Duration 8 weeks hip mobility Impairment SLR = 60 , ER= 30s and IR 30s, prone knee flexion = 120s Short Term Goal (STG) 2/8 pt will improve his overall hip mobility by 5 degrees STG Duration 4 weeks Machine Helper Goal (LTG) 2/8 goal met SLR= 80 , ER 50 IR 30 pt will improve his overall hip mobility by >10 degrees to reduce muscular tension on his lumbar spine. LTG Duration 8 weeks Oswestry Impairment Pt scores 28 on Oswestry LBP questionnaire Short Term Goal (STG) 2/8 cont in progress = 26 pt will score <20 on Oswestry LBP questionnaire STG Duration 4 weeks Machine Helper Goal (LTG) pt will score <15 on Oswestry LBP questionnaire to improve his quality of life LTG Duration 8 weeks Progress Towards Goals Progress Towards Goals Progressing Toward Goals Assessment Summary Assessment although pt had a flare up early in May after having a physically demanding day, he has fully recovered now. He shows good hip mobility now with improved trunk stability as well. Pt will cont benefit from skilled therapy to improve his trunk stability and strength so he can fully return to his lifting activities. Added trunk extension on addison chair and chair squat with barbell to his workout routine to encourage trunk stability. Physical Therapy Plan Frequency and Duration Frequency of Treatment 1x/Week Duration of Treatment 8 weeks Plan of Care Start Date 06/16/19 Plan of Care End Date 08/15/20 Therapeutic Interventions Therapeutic Interventions Balance Training,Gait Training ,Home Exercise Program,Joint Mobilizations,Manual Therapy, Neuromuscular Re-education, Patient/Caregiver Education, Self-Care/Home Management,Soft Tissue Mobilization,Taping, Therapeutic Activities, Therapeutic Exercises Modalities Biofeedback,Cold Pack/Ice Massage,Electric Stimulation, Hot Packs,Infrared Therapy, Traction- Mechanical Next Visit Focus/Plan Next Note Type Treatment Note Next Visit Plan hip mobility, ER and IR, SLR cat camel, bird dog, trunk extension RDL, J curl, deadlift bend over row, single arm rowing hayes carry.
--- NOTE | 2020-06-23 07:40 | PT-OP ANOTE ---
Pt DNS for today's 0730 appt, called and snowed in but didn't think to call and cancel in advance. Pt welcoming to recommended reschedule today's appt for tomorrow at 0815 per TRAFFIC CIRCUIT ENGINEER's suggestion.
--- NOTE | 2020-06-24 09:05 | PT.OTN ---
Current Diagnoses Low back pain (06/24/20) Physical Therapy Treatment Note PT-OP-A Visit Information Start: 03/24/20 09:58 Freq: Status: Active Protocol: Document 06/24/20 08:15 SP (Rec: 06/24/20 09:26 SP [id number]) Out-Patient Physical Therapy Visit Information Visit Information Visit Type Treatment Note Visit Note SPTA Raji attended and provided ex instruction when needed, supervised by Renetta BAIG. Visit Start Time 08:15 Visit Stop Time 09:05 Total Visit Minutes 50 Visit Number 10/19 Number of RESTAURANT CASHIER Visits 1 PT-OP-B Current Condition Start: 03/24/20 09:58 Freq: Status: Active Protocol: Document 03/24/20 09:59 HH (Rec: 03/24/20 10:34 HH [email or web address]) Current Condition History of Current Condition Onset Date 5-6 years ago Current Complaints chronic LBP History of Current Condition Pt is a 34yo male here for his chronic LBP started 5-6 years ago. 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 He then has intermittent low grade back pain (1-4/10) and had flare ups x 2 (pain up to 8/10 ). His most recent one was in December while he was picking up a small object but his pain subsided after 4 weeks. Pt had physical therapy before which focused on increasing his hamstrings flexiblity and trunk stability. Pt has been going to the gym for lifting workout ( bench press, squat and deadlift) which seemly has been helping his back as he stated, but he wants to participate PT again for injury prevention and therex for recovery. PT-OP-C Subjective Start: 03/24/20 09:58 Freq: Status: Active Protocol: Document 06/24/20 08:15 SP (Rec: 06/24/20 09:26 SP [id number]) OP-PT Subjective Patient Comments Patient Comments Pt reported little sore and LB tightness. Patient Reported Progress Improving PT-OP-F Manual Assessment Start: 03/24/20 09:58 Freq: Status: Active Protocol: Document 03/24/20 09:59 HH (Rec: 03/24/20 10:34 HH [email or web address]) Manual Assessments Soft Tissue Assessment Soft Tissue Mobility Assessment increased tenderness to pressure at lumbar paraspinals Joint Mobility Assessment Joint Mobility Assessment pain with PA mob at L4-L5 PT-OP-H Neuro Start: 03/24/20 09:58 Freq: Status: Active Protocol: Document 03/24/20 09:59 HH (Rec: 03/24/20 10:34 [email or web address]) Sensation Evaluation Gross Sensation Gross Sensation WNL Deep Tendon Reflex & Clonus Assessment Deep Tendon Reflex Bilateral Achilles Deep Tendon Reflex 2+ Normal Bilateral Patellar Deep Tendon Reflex 1+ Diminished PT-OP-J Posture/Palpation/Skin Start: 03/24/20 09:58 Freq: Status: Active Protocol: Document 03/24/20 09:59 HH (Rec: 03/24/20 10:34 [email or web address]) Posture Evaluation Position Standing Evaluation View Lateral T-Spine Posture Increased Kyphosis L-Spine Posture Increased Lordosis Ankle/Foot Posture (L) Pronated,(R) Pronated,(L) Forefoot Abducted,(R) Forefoot Abducted PT-OP-K Range of Motion Start: 03/24/20 09:58 Freq: Status: Active Protocol: Document 06/16/20 12:55 HH (Rec: 06/16/20 14:02 [id number]) Hip Goniometric Range of Motion Hip Right Active Straight Leg Raise 75 Internal Rotation 25 External Rotation 45 Left Active Straight Leg Raise 80 Internal Rotation 50 External Rotation 30 PT-OP-L Special Tests Start: 03/24/20 09:58 Freq: Status: Active Protocol: Document 06/16/20 12:55 HH (Rec: 06/16/20 14:02 [email or web address]) Special Tests Lumbar Spine Special Tests Harlan Test Results -ve B Prone Instability Test Test Results -VE B Straight Leg Raise Comments up to 75-80 degrees PT-OP-M Strength Start: 03/24/20 09:58 Freq: Status: Active Protocol: Document 03/24/20 09:59 HH (Rec: 03/24/20 10:34 [email or web address]) Hip Strength Hip Manual Muscle Testing Right Flexion (L2) 4 Good Extension (S1) 4 Good Abduction 4+ Good+ Adduction 4+ Good+ Left Flexion (L2) 4+ Good+ Extension (S1) 4+ Good+ Abduction 4+ Good+ Adduction 4+ Good+ PT-OP-Q Treatments Start: 03/24/20 09:58 Freq: Status: Active Protocol: Document 06/24/20 08:15 SP (Rec: 06/24/20 09:26 SP [id number]) Therapeutic Exercises Prone Exercises trunk extension Prone Exercise Name pelvis and upper body EO table , therapist affix LE stability Side bilateral Resistance AROM Reps/Minutes 8 x2 Comments cued PPT w/ core facilitation superman Prone Exercise Name level 1 with B hip extension only off table Side bilateral Reps/Minutes 10 x2 Comments cued core facilitation bird dog Prone Exercise Name UE/ LE ext Side bilateral Reps/Minutes 10 x2 Comments cued serratus press and neutral pelvis cat camel Reps/Minutes 10 x2 Comments improved mobility noted Standing Exercises deadlift Side bilateral Equipment Used 20lbs KB Reps/Minutes 10 x2 gallo curl Standing Exercise Name cues on extended knees Resistance 4 step Equipment Used 25lbs B DBs Reps/Minutes 8 x2 Other Exercises foam roll, stick roll, racquetball roll Other Exercise Name HS, quad, ITB, calf, TS ext/ roll Reps/Minutes time to tolerance Comments cued neutral pelvis- good tolerance and effective/ decrease tightness PT-OP-T Assessment and Plan Start: 03/24/20 09:58 Freq: Status: Active Protocol: Document 06/24/20 08:15 SP (Rec: 06/24/20 09:26 SP [id number]) Physical Therapy Assessment Goals return to lifting Impairment unable to return to his previous lifting weights Short Term Goal (STG) pt will demonstrated good lifting techniques for deadlift and back squat at 185lbs without any discomfort STG Duration 4 weeks Ambulatory Technologist Goal (LTG) pt will maintain good lifting techniques for deadlift and back squat at 225lbs without any discomfort LTG Duration 8 weeks pain Impairment significant pain during PA mob at L4-L5 Ambulatory Technologist Goal (LTG) 2/8 goal met pt l improves his lumbar stability and msucular strength so he will have pain no more than >2 during PA mob. LTG Duration 8 weeks toe touch test Impairment flexion= 8 inches. LF = 23 inches Short Term Goal (STG) 2/8 goal met toe touch= 2 inches from floor lateral flexion to R=21 lateral flexion to L = 21 pt will improve his posterior chain flexibility to be able to reach <6 inches and 20 inches for touch touch and lateral flexion test STG Duration 4 weeks Ambulatory Technologist Goal (LTG) 2/8 goal met pt will improve his posterior chain flexibility to be able to reach <4 inches and 20 inches for touch touch and lateral flexion test in order for him to spanish moss picker objects on the floor without much mechanical stress on lumbar spine LTG Duration 8 weeks hip mobility Impairment SLR = 60 , ER= 30s and IR 30s, prone knee flexion = 120s Short Term Goal (STG) 2/8 pt will improve his overall hip mobility by 5 degrees STG Duration 4 weeks Ambulatory Technologist Goal (LTG) 2/8 goal met SLR= 80 , ER 50 IR 30 pt will improve his overall hip mobility by >10 degrees to reduce muscular tension on his lumbar spine. LTG Duration 8 weeks Oswestry Impairment Pt scores 28 on Oswestry LBP questionnaire Short Term Goal (STG) 2/8 cont in progress = 26 pt will score <20 on Oswestry LBP questionnaire STG Duration 4 weeks Ambulatory Technologist Goal (LTG) pt will score <15 on Oswestry LBP questionnaire to improve his quality of life LTG Duration 8 weeks Assessment Summary Assessment Tx focused on HEP review with cuing required for neutral LS and CS, core and serratus press facilitation with slow controlled motion. Pt able incorporated BUE/ BLE ext bird dog today. Initiated flexibilitiy using foam roller , rolling stick and racquetball luis for hamstring tightness with good feedback results and looser low back by end of tx. Physical Therapy Plan Frequency and Duration Frequency of Treatment 1x/Week Duration of Treatment 8 weeks Plan of Care Start Date 06/16/19 Plan of Care End Date 08/15/20 Therapeutic Interventions Therapeutic Interventions Balance Training,Gait Training ,Home Exercise Program,Joint Mobilizations,Manual Therapy, Neuromuscular Re-education, Patient/Caregiver Education, Self-Care/Home Management,Soft Tissue Mobilization,Taping, Therapeutic Activities, Therapeutic Exercises Modalities Biofeedback,Cold Pack/Ice Massage,Electric Stimulation, Hot Packs,Infrared Therapy, Traction- Mechanical Next Visit Focus/Plan Next Note Type Treatment Note Next Visit Plan Assess response to rolling LEs , TS and pec and HEP review extension focus. Continue per PT POC: hip mobility, ER and IR, SLR cat camel, bird dog, trunk extension RDL, J curl, deadlift bend over row, single arm rowing hayes carry.
--- NOTE | 2020-09-08 09:28 | PT.OPDS ---
Current Diagnoses Low back pain (06/24/20) Visit Care Team Role Provider Type Rodolfo Khan DO Attending Provider Non-Staff Family Provider Primary Care Provider Referring Provider Specialty: Family Practice Address: [address] [place] [address], [id number] Email: Visit Number Visit Number 10/19 Discharge Summary PT-OP-T Assessment and Plan Start: 03/24/20 09:58 Freq: Status: Active Protocol: Document 09/08/20 09:28 (Rec: 09/08/20 09:28 [email or web address]) Physical Therapy Plan Discharge Physical Therapy Discharge Reasons No Longer Attending PT Discharge Comments Pt has not returned to therapy since Feburary. JANETTE pt from PT
== END 2020-09-08 14:30 | disposition home or self-care (01) ==
LOC: PHYS 08:15
PROVIDERS: Family Provider Family Medicine; PCP Family Medicine; Referring Provider Family Medicine; Visit Provider Family Medicine
DX: M54.5 Low back pain (principal)
CPT/HCPCS: 95851; 97110; 97140; 97161